=== PATIENT | male | born 1980 | race African-American/Black ===

== ENCOUNTER 2016-11-10 19:25 | Emergency (ER) | payer SELFPAY ==
[~2016-11-10] VITALS: Ht 167.6 cm; Wt 90.5 kg
[2016-11-10] MEDS ORDERED: SODIUM CHLORIDE 0.9% 1,000 ML IV ONE (19:45)
[2016-11-10 20:01] LABS: BASOPHILS # (AUTO) 0.07 K/uL (0.00-0.20); BASOPHILS % (AUTO) 1.2 % (0.0-2.0); EOSINOPHILS # (AUTO) 0.02 K/uL (0.00-0.70); EOSINOPHILS % (AUTO) 0.41 % (1.0-6.0); HEMOGLOBIN 13.5 g/dL (13.5-17.5); LYMPHOCYTES % (AUTO) 32.9 % (22.0-44.0); MEAN CORPUSCULAR HEMOGLOBIN 27.9 pg (26.0-34.0); MEAN CORPUSCULAR HGB CONC 32.9 G/dL (31.0-37.0); MEAN CORPUSCULAR VOLUME 85 fL (80-100); MONOCYTES # (AUTO) 0.8 K/uL (0.1-1.0); MONOCYTES % (AUTO) 12.7 % (2.0-9.0); NEUTROPHILS # (AUTO) 3.2 K/uL (1.8-7.7); NEUTROPHILS % (AUTO) 52.8 % (40.0-70.0); PLATELET COUNT (AUTO) 218 K/uL (150-450); RED BLOOD CELL COUNT(AUTO) 4.82 MIL/uL (4.50-5.90); RED CELL DISTRIBUTION WIDTH 15.9 % (11.5-14.5)
[2016-11-10 20:13] LABS: ANION GAP 9 mmol/L (8-16); CALCIUM, TOTAL 8.1 mg/dL (8.8-10.5); CARBON DIOXIDE 26 mmol/L (22-29); CHLORIDE 102 mmol/L (98-107); GLOMERULAR FILTR. RATE CALC > 60 mL/min (>60); POTASSIUM 3.3 mmol/L (3.5-5.1); SODIUM SERUM 137 mmol/L (136-145); UREA NITROGEN, BLOOD 11 mg/dL (7-18)
[2016-11-10 20:14] LABS: INR 0.9 (0.9-1.1); PROTHROMBIN TIME 9.9 SEC (9.4-11.6)
[2016-11-10 20:19] LABS: ALANINE AMINOTRANSFERASE 90 U/L (12-78); ALBUMIN 3.9 g/dL (3.4-5.0); ASPARTATE AMINOTRANSFERASE 125 U/L (15-37); BILIRUBIN,TOTAL 0.3 mg/dL (0.1-1.0)
[2016-11-10] MEDS ORDERED: ONDANSETRON HCL 4 MG/2 ML VIAL IVP ONE (21:00)
[2016-11-10] MEDS ORDERED: PANTOPRAZOLE SODIUM 40 MG/VIAL IVP ONE (21:00)
[2016-11-10] MEDS ORDERED: MAGNESIUM SULFATE 2 GM, MVI, ADULT NO.1 WITH VIT K 10 ML, THIAMINE HCL 100 MG, FOLIC AC... IV ONE ×5 (21:00)
[2016-11-10] MEDS ORDERED: POTASSIUM CHLORIDE 20 MEQ ER TABLET PO ONE (21:30)
[2016-11-10 22:34] LABS: APPEARANCE,URINE CLEAR (CLEAR); GLUCOSE, URINE (UA) NEGATIVE (NEGATIVE); KETONES,URINE NEGATIVE (NEGATIVE); LEUKOCYTE ESTERASE ,URINE NEGATIVE (NEGATIVE); OCCULT BLOOD,URINE NEGATIVE (NEGATIVE); PH,URINE 6.5 (5.0-8.0); PROTEIN,URINE NEGATIVE (NEGATIVE)
[2016-11-10 22:37] LABS: ADD UA MICROSCOPIC NO
[2016-11-10 23:18] VITALS: BP 122/70
== END 2016-11-10 23:21 | disposition home or self-care (01) ==
LOC: EMS 19:28
DX: R10.31 Right lower quadrant pain (principal); R11.2 Nausea with vomiting, unspecified; F10.129 Alcohol abuse with intoxication, unspecified; E87.6 Hypokalemia; Y90.8 Blood alcohol level of 240 mg/100 ml or more
CPT/HCPCS: 36415; 80053; 80307; 81003; 83690; 85025; 85610; 85730; 93005; 96361; 96365; 96366; 96375; 99285; C9113; G0480; J2405; J3411; J3475; J3490 ×2; J7030

== ENCOUNTER 2016-11-24 17:17 | Emergency (ER) | payer SELFPAY ==
[~2016-11-24] VITALS: Ht 167.6 cm; Wt 90.9 kg
[2016-11-24] MEDS ORDERED: SODIUM CHLORIDE 0.9% 1,000 ML IV ONE (19:30)
[2016-11-24] MEDS ORDERED: PANTOPRAZOLE SODIUM 40 MG/VIAL IVP ONE (19:30)
[2016-11-24 19:39] LABS: BASOPHILS % (AUTO) 0.3 % (0.0-2.0); EOSINOPHILS % (AUTO) 0.6 % (1.0-6.0); HEMATOCRIT 39.5 % (41-53); HEMOGLOBIN 13.3 g/dL (13.5-17.5); LYMPHOCYTES % (AUTO) 34.2 % (22.0-44.0); MEAN CORPUSCULAR HEMOGLOBIN 28.3 pg (26.0-34.0); MEAN CORPUSCULAR HGB CONC 33.7 G/dL (31.0-37.0); MEAN CORPUSCULAR VOLUME 84 fL (80-100); MONOCYTES # (AUTO) 0.7 K/uL (0.1-1.0); MONOCYTES % (AUTO) 13.1 % (2.0-9.0); NEUTROPHILS % (AUTO) 51.8 % (40.0-70.0); PLATELET COUNT (AUTO) 223 K/uL (150-450); RED BLOOD CELL COUNT(AUTO) 4.71 MIL/uL (4.50-5.90); RED CELL DISTRIBUTION WIDTH 15.9 % (11.5-14.5); WHITE BLOOD COUNT (AUTO) 5.7 K/uL (4.5-11.0)
[2016-11-24 19:48] LABS: ANION GAP 13 mmol/L (8-16); CALCIUM, TOTAL 8.6 mg/dL (8.8-10.5); CARBON DIOXIDE 27 mmol/L (22-29); CHLORIDE 104 mmol/L (98-107); CREATININE 0.93 mg/dL (0.60-1.30); GLOMERULAR FILTR. RATE CALC > 60 mL/min (>60); POTASSIUM 3.6 mmol/L (3.5-5.1); SODIUM SERUM 144 mmol/L (136-145); UREA NITROGEN, BLOOD 11 mg/dL (7-18)
[2016-11-24 19:54] LABS: ALANINE AMINOTRANSFERASE 145 U/L (12-78); ALBUMIN 3.8 g/dL (3.4-5.0); ASPARTATE AMINOTRANSFERASE 109 U/L (15-37); BILIRUBIN,TOTAL 0.2 mg/dL (0.1-1.0); INR 0.9 (0.9-1.1); TOTAL PROTEIN, SERUM 7.7 g/dL (6.4-8.2)
[2016-11-24 20:51] VITALS: BP 132/88
== END 2016-11-24 20:54 | disposition home or self-care (01) ==
LOC: EMS 17:20
DX: K92.2 Gastrointestinal hemorrhage, unspecified (principal); F10.129 Alcohol abuse with intoxication, unspecified; R42 Dizziness and giddiness; Y90.6 Blood alcohol level of 120-199 mg/100 ml
CPT/HCPCS: 36415; 80053; 85025; 85610; 85730; 96361; 96374; 99284; C9113; G0480; J7030

== ENCOUNTER 2018-11-23 11:00 | Emergency (ER) | payer SELFPAY ==
[~2018-11-23] VITALS: Ht 167.6 cm; Wt 86.4 kg
[2018-11-23] MEDS ORDERED: SODIUM CHLORIDE 0.9% 1,000 ML IV ONE (11:45)
[2018-11-23] MEDS ORDERED: LOPERAMIDE HCL 2 MG CAPSULE PO ONE (11:45)
[2018-11-23] MEDS ORDERED: ONDANSETRON HCL 4 MG/2 ML VIAL IVP ONE (11:45)
[2018-11-23 12:17] LABS: BASOPHILS % (AUTO) 0.4 % (0.0-2.0); EOSINOPHILS % (AUTO) 0.5 % (1.0-6.0); HEMOGLOBIN 15.2 g/dL (13.5-17.5); LYMPHOCYTES # (AUTO) 0.9 K/uL (1.0-4.8); LYMPHOCYTES % (AUTO) 25.5 % (22.0-44.0); MEAN CORPUSCULAR HEMOGLOBIN 28.7 pg (26.0-34.0); MEAN CORPUSCULAR HGB CONC 32.3 G/dL (31.0-37.0); MEAN CORPUSCULAR VOLUME 89 fL (80-100); MONOCYTES # (AUTO) 0.6 K/uL (0.1-1.0); MONOCYTES % (AUTO) 15.9 % (2.0-9.0); NEUTROPHILS # (AUTO) 2.1 K/uL (1.8-7.7); NEUTROPHILS % (AUTO) 57.7 % (40.0-70.0); PLATELET COUNT (AUTO) 165 K/uL (150-450); RED BLOOD CELL COUNT(AUTO) 5.29 MIL/uL (4.50-5.90); RED CELL DISTRIBUTION WIDTH 12.8 % (11.5-14.5)
[2018-11-23 12:27] LABS: ANION GAP 9 mmol/L (8-16); CALCIUM, TOTAL 9.7 mg/dL (8.8-10.5); CARBON DIOXIDE 29 mmol/L (22-29); CHLORIDE 98 mmol/L (98-107); GLOMERULAR FILTR. RATE CALC > 60 mL/min (>60); GLUCOSE,RANDOM 90 mg/dL (70-110); POTASSIUM 3.5 mmol/L (3.5-5.1); SODIUM SERUM 136 mmol/L (136-145); UREA NITROGEN, BLOOD 13 mg/dL (7-18)
[2018-11-23 12:30] LABS: INR 0.9 (0.9-1.1); PROTHROMBIN TIME 9.8 SEC (9.4-11.6)
[2018-11-23 12:33] LABS: ALANINE AMINOTRANSFERASE 131 U/L (12-78); ALBUMIN 3.9 g/dL (3.4-5.0); ALKALINE PHOSPHATASE 105 U/L (46-116); ASPARTATE AMINOTRANSFERASE 94 U/L (15-37); BILIRUBIN,TOTAL 0.8 mg/dL (0.1-1.0); LIPASE 168 U/L (73-393); TOTAL PROTEIN, SERUM 8.5 g/dL (6.4-8.2)
[2018-11-23 13:38] VITALS: BP 135/66
== END 2018-11-23 14:05 | disposition home or self-care (01) ==
LOC: EMS 11:02
DX: R11.2 Nausea with vomiting, unspecified (principal); R19.7 Diarrhea, unspecified; R10.13 Epigastric pain
CPT/HCPCS: 36415; 80053; 83690; 84484; 85025; 85610; 93005; 96361; 96374; 99284; J2405; J7030

== ENCOUNTER 2021-10-21 14:38 | Emergency (ER) | payer MEDICAID ==
[~2021-10-21] VITALS: Ht 167.6 cm; Wt 90.9 kg
[2021-10-21 14:43] VITALS: BP 142/78
[2021-10-22] MEDS ORDERED: BUPIVACAINE HCL 0.5% 50 ML VIAL ONE (14:06)
== END 2021-10-21 18:21 | disposition left against medical advice (07) ==
LOC: EMS 14:38
DX: Z53.21 Procedure and treatment not carried out due to patient leaving prior to being seen by health care provider (principal)
CPT/HCPCS: J3490

== ENCOUNTER 2021-10-21 20:20 | Inpatient (IN) | payer MEDICAID ==
[~2021-10-21] VITALS: Ht 167.6 cm; Wt 90.9 kg
[2021-10-22] MEDS ORDERED: LIDOCAINE 1% 20 ML VIAL ID ONE (00:15)
[2021-10-22] MEDS ORDERED: HYDROCODONE/ACETAMINOPHEN 5-325 MG TABLET PO ONE (00:15)
[2021-10-22] MEDS ORDERED: CeFAZolin 2 GM/DEXTROSE 50 ML IV ONE (00:45)
[2021-10-22 01:57] LABS: BASOPHILS % (AUTO) 0.6 % (0.0-2.0); EOSINOPHILS % (AUTO) 0.2 % (1.0-6.0); HEMATOCRIT 43.1 % (41-53); HEMOGLOBIN 14.3 g/dL (13.5-17.5); LYMPHOCYTES % (AUTO) 37.5 % (22.0-44.0); MEAN CORPUSCULAR HEMOGLOBIN 28.6 pg (26.0-34.0); MEAN CORPUSCULAR HGB CONC 33.2 G/dL (31.0-37.0); MEAN CORPUSCULAR VOLUME 86 fL (80-100); MONOCYTES # (AUTO) 0.9 K/uL (0.1-1.0); MONOCYTES % (AUTO) 11.1 % (2.0-9.0); NEUTROPHILS % (AUTO) 50.6 % (40.0-70.0); PLATELET COUNT (AUTO) 292 K/uL (150-450); RED CELL DISTRIBUTION WIDTH 14.7 % (11.5-14.5)
[2021-10-22 02:08] LABS: ANION GAP 9 mmol/L (8-16); CARBON DIOXIDE 27 mmol/L (22-29); CHLORIDE 105 mmol/L (98-107); CREATININE 1.03 mg/dL (0.60-1.30); GLOMERULAR FILTR. RATE CALC > 60 mL/min (>60); GLUCOSE,RANDOM 103 mg/dL (70-110); POTASSIUM 3.6 mmol/L (3.5-5.1); SODIUM SERUM 141 mmol/L (136-145); UREA NITROGEN, BLOOD 11 mg/dL (7-18)
[2021-10-22 02:13] LABS: INR 0.9 (0.9-1.1); PROTHROMBIN TIME 9.8 SEC (9.4-11.6)
[2021-10-22] MEDS ORDERED: PERTUSS(ACELL),DIPH,TET VAC/PF 0.5 ML SYRINGE IM. ONE (02:15)
[2021-10-22 02:30] LABS: COVID AG,FIA SOURCE NASAL SWAB
[2021-10-22] MEDS ORDERED: ALBUTEROL SULFATE 2.5 MG/0.5 ML NEB SOLUTION NEB PRN (04:30)
[2021-10-22] MEDS ORDERED: IPRATROPIUM BROMIDE 0.5 MG/2.5 ML NEB SOLUTION NEB PRN (04:30)
[2021-10-22] MEDS ORDERED: MORPHINE SULFATE 2 MG/ML SYRINGE IVP PRN (04:30)
[2021-10-22] MEDS ORDERED: ACETAMINOPHEN 325 MG TABLET PO PRN (04:30)
[2021-10-22] MEDS ORDERED: ONDANSETRON HCL 4 MG/2 ML VIAL IVP PRN (04:30)
[2021-10-22] MEDS: HEPARIN SODIUM,PORCINE 5,000 UNITS/ML VIAL SQ SCH ×3 (07:16→23:52)
[2021-10-22] MEDS ORDERED: LORazepam 2 MG TABLET PO PRN (07:45)
[2021-10-22] MEDS ORDERED: VANCOMYCIN HCL 1.5 GM in DEXTROSE 5%-WATER 250 ML IV ONE (08:00)
[2021-10-22 08:53] VITALS: BP 143/77
[2021-10-22 09:15] LABS: ALKALINE PHOSPHATASE 75 U/L (46-116)
[2021-10-22] MEDS ORDERED: SODIUM CHLORIDE 0.9% 500 ML IV ONE (09:27)
[2021-10-22] MEDS: CefTRIAXone 1 GM/DEXTROSE 50 ML IV SCH (11:00)
[2021-10-22] MEDS ORDERED: RINGERS SOLUTION,LACTATED 1,000 ML IV ONE ×2 (11:12→11:15)
[2021-10-22] MEDS ORDERED: BUPIVACAINE LIPOSOME/PF 1.3%-13.3MG/ML SUSPENSION 20 ML VIAL INJ ONE (11:30)
[2021-10-22] MEDS ORDERED: BUPIVACAINE HCL/PF 0.5% 30 ML VIAL ONE (11:30)
[2021-10-22] MEDS ORDERED: VANCOMYCIN HCL 1 GM/VIAL ONE (11:30)
[2021-10-22] MEDS ORDERED: SODIUM CL IRRIG SOLN BAG 3,000 ML IRRIG ONE (11:30)
[2021-10-22] MEDS: RINGERS SOLUTION,LACTATED 1,000 ML IV SCH (11:32)
[2021-10-22] MEDS ORDERED: HYDROmorphone 2 MG/ML VIAL IVP PRN (13:00)
[2021-10-22] MEDS ORDERED: MEPERIDINE-PF 25 MG/ML VIAL IVP PRN (13:00)
[2021-10-22] MEDS ORDERED: FentaNYL CITRATE PF 100 MCG/2 ML VIAL IVP PRN (13:00)
[2021-10-22] MEDS ORDERED: MUPIROCIN CALCIUM 2% 22 GM OINTMENT ONE (13:28)
[2021-10-22] MEDS ORDERED: SODIUM CL IRRIG SOLN BAG 6,000 ML IRRIG ONE (13:37)
[2021-10-22 15:54] VITALS: BP 152/93
[2021-10-22] MEDS: MAGNESIUM SULFATE 2 GM, MVI, ADULT NO.1 WITH VIT K 10 ML, THIAMINE 100 MG, FOLIC ACID 1... IV SCH ×5 (16:00)
[2021-10-22] MEDS: VANCOMYCIN 1GM/WATER(PEG/NADA) 200 ML IV SCH ×2 (17:04→23:52)
[2021-10-22 19:42] VITALS: BP 154/87
[2021-10-22] MEDS: CeFAZolin 1 GM/DEXTROSE 50 ML IV SCH (19:49)
[2021-10-22] MEDS: OxyCODONE HCL/ACETAMINOPHEN 5-325 MG TABLET PO PRN (19:49)
[2021-10-22] MEDS: OXYGEN THERAPY IH SCH (19:53)
[2021-10-23] MEDS: CeFAZolin 1 GM/DEXTROSE 50 ML IV SCH (03:25)
[2021-10-23] MEDS: OxyCODONE HCL/ACETAMINOPHEN 5-325 MG TABLET PO PRN ×2 (03:25→10:15)
[2021-10-23 03:32] VITALS: BP 140/88
[2021-10-23] MEDS: MAGNESIUM SULFATE 2 GM, MVI, ADULT NO.1 WITH VIT K 10 ML, THIAMINE 100 MG, FOLIC ACID 1... IV SCH ×5 (04:04)
[2021-10-23] MEDS ORDERED: ROCURONIUM BROMIDE 10 MG/ML 5 ML VIAL IVP ONE (06:29)
[2021-10-23] MEDS ORDERED: LIDOCAINE/PF 2% 5 ML VIAL IM ONE (06:29)
[2021-10-23] MEDS ORDERED: MIDAZOLAM HCL 2 MG/2 ML VIAL IVP ONE (06:29)
[2021-10-23] MEDS ORDERED: PROPOFOL 1% 20 ML VIAL IVP ONE (06:29)
[2021-10-23] MEDS ORDERED: 0.9% SODIUM CHLORIDE 10 ML VIAL IVP ONE (06:29)
[2021-10-23] MEDS ORDERED: FentaNYL CITRATE PF 100 MCG/2 ML VIAL IVP ONE (06:29)
[2021-10-23] MEDS ORDERED: HYDROmorphone 2 MG/ML VIAL IVP ONE (06:29)
[2021-10-23] MEDS ORDERED: ONDANSETRON HCL 4 MG/2 ML VIAL IVP ONE (06:29)
[2021-10-23] MEDS ORDERED: DEXAMETHASONE SOD PHOS 4 MG/ML VIAL IVP ONE (06:29)
[2021-10-23] MEDS ORDERED: PHENYLEPHRINE HCL 10 MG/ML VIAL IVP ONE (06:29)
[2021-10-23] MEDS ORDERED: LORazepam 2 MG TABLET PO PRN (07:00)
[2021-10-23 08:00] VITALS: BP 150/76
[2021-10-23] MEDS: OXYGEN THERAPY IH SCH ×2 (08:00→20:00)
[2021-10-23] MEDS: VANCOMYCIN 1GM/WATER(PEG/NADA) 200 ML IV SCH ×3 (08:10→23:37)
[2021-10-23] MEDS: LORazepam 2 MG TABLET PO SCH ×4 (08:10→20:26)
[2021-10-23] MEDS: HEPARIN SODIUM,PORCINE 5,000 UNITS/ML VIAL SQ SCH ×3 (08:10→23:37)
[2021-10-23 08:15] LABS: ANION GAP 10 mmol/L (8-16); CALCIUM, TOTAL 8.7 mg/dL (8.8-10.5); CARBON DIOXIDE 27 mmol/L (22-29); CHLORIDE 99 mmol/L (98-107); CREATININE 0.82 mg/dL (0.60-1.30); GLOMERULAR FILTR. RATE CALC > 60 mL/min (>60); GLUCOSE,RANDOM 111 mg/dL (70-110); POTASSIUM 4.4 mmol/L (3.5-5.1); SODIUM SERUM 136 mmol/L (136-145); UREA NITROGEN, BLOOD 10 mg/dL (7-18)
[2021-10-23] MEDS: RINGERS SOLUTION,LACTATED 1,000 ML IV SCH ×2 (11:15→11:35)
[2021-10-23] MEDS: CefTRIAXone 1 GM/DEXTROSE 50 ML IV SCH (11:33)
[2021-10-23 16:03] VITALS: BP 135/62
[2021-10-23 19:35] VITALS: BP 130/67
[2021-10-24] MEDS: MAGNESIUM SULFATE 2 GM, MVI, ADULT NO.1 WITH VIT K 10 ML, THIAMINE 100 MG, FOLIC ACID 1... IV SCH ×5 (02:08)
[2021-10-24 04:10] VITALS: BP 121/79
[2021-10-24] MEDS: OxyCODONE HCL/ACETAMINOPHEN 5-325 MG TABLET PO PRN ×2 (05:13→20:39)
[2021-10-24 06:45] LABS: ANION GAP 5 mmol/L (8-16); CALCIUM, TOTAL 8.6 mg/dL (8.8-10.5); CARBON DIOXIDE 30 mmol/L (22-29); CHLORIDE 102 mmol/L (98-107); CREATININE 0.83 mg/dL (0.60-1.30); GLOMERULAR FILTR. RATE CALC > 60 mL/min (>60); GLUCOSE,RANDOM 93 mg/dL (70-110); POTASSIUM 4.1 mmol/L (3.5-5.1); SODIUM SERUM 137 mmol/L (136-145); UREA NITROGEN, BLOOD 8 mg/dL (7-18); VANCOMYCIN,RANDOM 16.8 mcg/mL (25.0-50.0)
[2021-10-24 07:06] VITALS: BP 116/87
[2021-10-24] MEDS: OXYGEN THERAPY IH SCH ×2 (08:00→19:26)
[2021-10-24] MEDS: LORazepam 2 MG TABLET PO SCH ×2 (09:32→13:00)
[2021-10-24] MEDS: HEPARIN SODIUM,PORCINE 5,000 UNITS/ML VIAL SQ SCH ×3 (09:32→23:31)
[2021-10-24] MEDS: VANCOMYCIN 1GM/WATER(PEG/NADA) 200 ML IV SCH (09:33)
[2021-10-24] MEDS: RINGERS SOLUTION,LACTATED 1,000 ML IV SCH (11:15)
[2021-10-24] MEDS: CefTRIAXone 1 GM/DEXTROSE 50 ML IV SCH (11:55)
[2021-10-24] MEDS ORDERED: DOXY50 PO (13:11)
[2021-10-24 15:49] VITALS: BP 143/86
[2021-10-24 19:50] VITALS: BP 118/69
[2021-10-24] MEDS: DOXYCYCLINE HYCLATE 100 MG TABLET PO SCH (20:39)
[2021-10-25 04:49] VITALS: BP 127/80
[2021-10-25 06:33] LABS: ANION GAP 9 mmol/L (8-16); CALCIUM, TOTAL 8.5 mg/dL (8.8-10.5); CARBON DIOXIDE 27 mmol/L (22-29); CHLORIDE 101 mmol/L (98-107); CREATININE 0.79 mg/dL (0.60-1.30); GLOMERULAR FILTR. RATE CALC > 60 mL/min (>60); GLUCOSE,RANDOM 85 mg/dL (70-110); POTASSIUM 3.7 mmol/L (3.5-5.1); SODIUM SERUM 137 mmol/L (136-145); UREA NITROGEN, BLOOD 9 mg/dL (7-18)
[2021-10-25] MEDS ORDERED: LORazepam 1 MG TABLET PO PRN (07:00)
[2021-10-25] MEDS: OXYGEN THERAPY IH SCH ×2 (08:00→19:42)
[2021-10-25] MEDS: DOXYCYCLINE HYCLATE 100 MG TABLET PO SCH ×2 (08:03→20:01)
[2021-10-25] MEDS: OxyCODONE HCL/ACETAMINOPHEN 5-325 MG TABLET PO PRN ×2 (08:03→18:13)
[2021-10-25] MEDS: HEPARIN SODIUM,PORCINE 5,000 UNITS/ML VIAL SQ SCH ×3 (08:03→23:40)
[2021-10-25 08:12] VITALS: BP 122/83
[2021-10-25] MEDS ORDERED: LORazepam 1 MG TABLET PO SCH (09:00)
[2021-10-25 15:50] VITALS: BP 121/74
[2021-10-25 19:21] VITALS: BP 138/85
[2021-10-25 22:53] VITALS: BP 127/86
[2021-10-26 06:19] VITALS: BP 127/86
[2021-10-26] MEDS: OxyCODONE HCL/ACETAMINOPHEN 5-325 MG TABLET PO PRN ×3 (06:24→20:14)
[2021-10-26] MEDS ORDERED: LORazepam 1 MG TABLET PO PRN (07:00)
[2021-10-26 07:27] VITALS: BP 114/67
[2021-10-26 07:33] LABS: ANION GAP 6 mmol/L (8-16); CALCIUM, TOTAL 8.7 mg/dL (8.8-10.5); CARBON DIOXIDE 28 mmol/L (22-29); CHLORIDE 99 mmol/L (98-107); CREATININE 0.87 mg/dL (0.60-1.30); GLOMERULAR FILTR. RATE CALC > 60 mL/min (>60); GLUCOSE,RANDOM 87 mg/dL (70-110); POTASSIUM 3.5 mmol/L (3.5-5.1); SODIUM SERUM 133 mmol/L (136-145); UREA NITROGEN, BLOOD 11 mg/dL (7-18); VANCOMYCIN,RANDOM 0.9 mcg/mL (25.0-50.0)
[2021-10-26] MEDS: OXYGEN THERAPY IH SCH ×2 (08:52→19:14)
[2021-10-26] MEDS: HEPARIN SODIUM,PORCINE 5,000 UNITS/ML VIAL SQ SCH ×3 (08:52→23:08)
[2021-10-26] MEDS: DOXYCYCLINE HYCLATE 100 MG TABLET PO SCH ×2 (08:52→20:14)
[2021-10-26 15:56] VITALS: BP 126/77
[2021-10-26 20:03] VITALS: BP 127/76
[2021-10-27 04:26] VITALS: BP 119/80
[2021-10-27 06:37] LABS: ANION GAP 7 mmol/L (8-16); CARBON DIOXIDE 28 mmol/L (22-29); CHLORIDE 100 mmol/L (98-107); CREATININE 0.87 mg/dL (0.60-1.30); GLOMERULAR FILTR. RATE CALC > 60 mL/min (>60); GLUCOSE,RANDOM 84 mg/dL (70-110); POTASSIUM 4.1 mmol/L (3.5-5.1); SODIUM SERUM 135 mmol/L (136-145); UREA NITROGEN, BLOOD 12 mg/dL (7-18)
[2021-10-27 07:34] VITALS: BP 132/80
[2021-10-27] MEDS: HEPARIN SODIUM,PORCINE 5,000 UNITS/ML VIAL SQ SCH ×3 (08:26→23:29)
[2021-10-27] MEDS: OXYGEN THERAPY IH SCH ×2 (08:27→20:47)
[2021-10-27] MEDS: DOXYCYCLINE HYCLATE 100 MG TABLET PO SCH ×2 (08:27→20:44)
[2021-10-27] MEDS: OxyCODONE HCL/ACETAMINOPHEN 5-325 MG TABLET PO PRN ×2 (12:01→17:40)
[2021-10-27 15:38] VITALS: BP 127/76
[2021-10-27 20:38] VITALS: BP 123/85
[2021-10-28 04:55] VITALS: BP 124/70
[2021-10-28 07:04] VITALS: BP 126/74
[2021-10-28] MEDS: OXYGEN THERAPY IH SCH ×2 (08:00→20:23)
[2021-10-28] MEDS: DOXYCYCLINE HYCLATE 100 MG TABLET PO SCH ×2 (09:58→20:22)
[2021-10-28] MEDS: HEPARIN SODIUM,PORCINE 5,000 UNITS/ML VIAL SQ SCH ×3 (09:59→23:03)
[2021-10-28 15:08] VITALS: BP 122/72
[2021-10-28] MEDS: OxyCODONE HCL/ACETAMINOPHEN 5-325 MG TABLET PO PRN (17:31)
[2021-10-28 19:28] VITALS: BP 122/77
[2021-10-29 04:15] VITALS: BP 110/78
[2021-10-29] MEDS: DOXYCYCLINE HYCLATE 100 MG TABLET PO SCH ×2 (07:41→20:03)
[2021-10-29] MEDS: HEPARIN SODIUM,PORCINE 5,000 UNITS/ML VIAL SQ SCH ×3 (07:41→23:41)
[2021-10-29] MEDS: OXYGEN THERAPY IH SCH ×2 (07:41→19:40)
[2021-10-29] MEDS ORDERED: VITAMINS A & D 113 GM OINTMENT TP PRN (08:00)
[2021-10-29 08:04] VITALS: BP 144/90
[2021-10-29] MEDS: OxyCODONE HCL/ACETAMINOPHEN 5-325 MG TABLET PO PRN (12:48)
[2021-10-29 15:36] VITALS: BP 133/74
[2021-10-29 19:49] VITALS: BP 122/60
[2021-10-30 04:00] VITALS: BP 128/73
[2021-10-30 07:58] VITALS: BP 124/75
[2021-10-30] MEDS: OXYGEN THERAPY IH SCH ×2 (08:00→20:00)
[2021-10-30] MEDS: OxyCODONE HCL/ACETAMINOPHEN 5-325 MG TABLET PO PRN ×2 (08:18→18:36)
[2021-10-30] MEDS: DOXYCYCLINE HYCLATE 100 MG TABLET PO SCH ×2 (08:19→20:06)
[2021-10-30] MEDS: HEPARIN SODIUM,PORCINE 5,000 UNITS/ML VIAL SQ SCH ×3 (08:19→23:17)
[2021-10-30] MEDS ORDERED: SODIUM CHLORIDE 0.9% IRRIG BTL 1,000 ML IRRIG ONE (11:17)
[2021-10-30 16:02] VITALS: BP 121/70
[2021-10-30 19:34] VITALS: BP 135/83
[2021-10-31 04:00] VITALS: BP 120/62
[2021-10-31 07:28] VITALS: BP 121/64
[2021-10-31] MEDS: OXYGEN THERAPY IH SCH ×2 (08:00→20:00)
[2021-10-31] MEDS: DOXYCYCLINE HYCLATE 100 MG TABLET PO SCH ×2 (08:21→20:44)
[2021-10-31] MEDS: HEPARIN SODIUM,PORCINE 5,000 UNITS/ML VIAL SQ SCH ×3 (08:22→23:36)
[2021-10-31] MEDS: OxyCODONE HCL/ACETAMINOPHEN 5-325 MG TABLET PO PRN ×2 (08:23→20:45)
[2021-10-31 15:10] VITALS: BP 124/76
[2021-10-31 19:47] VITALS: BP 123/78
[2021-11-01 05:12] VITALS: BP 116/67
[2021-11-01 07:39] VITALS: BP 124/71
[2021-11-01] MEDS: OXYGEN THERAPY IH SCH (08:00)
[2021-11-01] MEDS: HEPARIN SODIUM,PORCINE 5,000 UNITS/ML VIAL SQ SCH ×3 (08:31→23:24)
[2021-11-01] MEDS: DOXYCYCLINE HYCLATE 100 MG TABLET PO SCH ×2 (08:31→20:23)
[2021-11-01] MEDS: OxyCODONE HCL/ACETAMINOPHEN 5-325 MG TABLET PO PRN ×2 (08:32→20:23)
[2021-11-01 15:27] VITALS: BP 114/73
[2021-11-01] MEDS ORDERED: ERYTHROMYCIN 0.5% 3.5 GM TUBE OPHTHALMIC OINTMENT OU SCH (16:00)
[2021-11-01 19:54] VITALS: BP 118/74
[2021-11-02 04:13] VITALS: BP 112/68
[2021-11-02 07:50] VITALS: BP 111/64
[2021-11-02] MEDS: DOXYCYCLINE HYCLATE 100 MG TABLET PO SCH ×2 (07:50→19:53)
[2021-11-02] MEDS: HEPARIN SODIUM,PORCINE 5,000 UNITS/ML VIAL SQ SCH ×3 (07:50→23:58)
[2021-11-02] MEDS: OxyCODONE HCL/ACETAMINOPHEN 5-325 MG TABLET PO PRN ×4 (09:09→19:58)
[2021-11-02 15:10] VITALS: BP 120/72
[2021-11-02 19:16] VITALS: BP 122/72
[2021-11-03 05:36] VITALS: BP 108/69
[2021-11-03 07:53] VITALS: BP 127/94
[2021-11-03] MEDS: HEPARIN SODIUM,PORCINE 5,000 UNITS/ML VIAL SQ SCH ×2 (08:05→16:24)
[2021-11-03] MEDS: DOXYCYCLINE HYCLATE 100 MG TABLET PO SCH ×2 (08:05→19:53)
[2021-11-03] MEDS: OxyCODONE HCL/ACETAMINOPHEN 5-325 MG TABLET PO PRN ×2 (10:24→19:57)
[2021-11-03 15:10] VITALS: BP 128/81
[2021-11-03 19:58] VITALS: BP 122/62
[2021-11-04 04:00] VITALS: BP 121/65
[2021-11-04 07:51] VITALS: BP 127/66
[2021-11-04] MEDS: DOXYCYCLINE HYCLATE 100 MG TABLET PO SCH ×2 (08:22→21:12)
[2021-11-04] MEDS: HEPARIN SODIUM,PORCINE 5,000 UNITS/ML VIAL SQ SCH ×4 (08:22→23:26)
[2021-11-04] MEDS: OxyCODONE HCL/ACETAMINOPHEN 5-325 MG TABLET PO PRN ×2 (08:30→16:16)
[2021-11-04 15:26] VITALS: BP 118/73
[2021-11-04 20:17] VITALS: BP 121/62
[2021-11-05 04:42] VITALS: BP 109/67
[2021-11-05 08:18] VITALS: BP 103/71
[2021-11-05] MEDS: HEPARIN SODIUM,PORCINE 5,000 UNITS/ML VIAL SQ SCH ×3 (09:30→23:49)
[2021-11-05] MEDS: OxyCODONE HCL/ACETAMINOPHEN 5-325 MG TABLET PO PRN ×2 (09:45→16:53)
[2021-11-05] MEDS: DOXYCYCLINE HYCLATE 100 MG TABLET PO SCH ×2 (10:56→20:46)
[2021-11-05 17:02] VITALS: BP 106/43
[2021-11-06 05:55] VITALS: BP 118/74
[2021-11-06 07:55] VITALS: BP 130/79
[2021-11-06] MEDS: DOXYCYCLINE HYCLATE 100 MG TABLET PO SCH ×2 (08:59→21:02)
[2021-11-06] MEDS: HEPARIN SODIUM,PORCINE 5,000 UNITS/ML VIAL SQ SCH ×3 (08:59→23:31)
[2021-11-06] MEDS: OxyCODONE HCL/ACETAMINOPHEN 5-325 MG TABLET PO PRN ×2 (11:16→18:43)
[2021-11-06 16:29] VITALS: BP 123/76
[2021-11-06 19:58] VITALS: BP 120/64
[2021-11-07 02:31] VITALS: BP 116/79
[2021-11-07 07:52] VITALS: BP 118/73
[2021-11-07] MEDS: DOXYCYCLINE HYCLATE 100 MG TABLET PO SCH ×2 (08:25→20:42)
[2021-11-07] MEDS: HEPARIN SODIUM,PORCINE 5,000 UNITS/ML VIAL SQ SCH ×3 (08:25→23:56)
[2021-11-07] MEDS: OxyCODONE HCL/ACETAMINOPHEN 5-325 MG TABLET PO PRN ×2 (08:27→20:42)
[2021-11-07 16:00] VITALS: BP 101/73
[2021-11-07 19:50] VITALS: BP 123/75
[2021-11-08 04:20] VITALS: BP 108/80
[2021-11-08 07:18] VITALS: BP 108/67
[2021-11-08] MEDS: DOXYCYCLINE HYCLATE 100 MG TABLET PO SCH ×2 (08:34→21:17)
[2021-11-08] MEDS: HEPARIN SODIUM,PORCINE 5,000 UNITS/ML VIAL SQ SCH ×3 (08:36→23:25)
[2021-11-08] MEDS: OxyCODONE HCL/ACETAMINOPHEN 5-325 MG TABLET PO PRN ×2 (11:02→21:18)
[2021-11-08 15:31] VITALS: BP 108/64
[2021-11-08 19:33] VITALS: BP 103/65
[2021-11-09 04:26] VITALS: BP 113/85
[2021-11-09] MEDS: HEPARIN SODIUM,PORCINE 5,000 UNITS/ML VIAL SQ SCH ×3 (09:04→23:08)
[2021-11-09] MEDS: OxyCODONE HCL/ACETAMINOPHEN 5-325 MG TABLET PO PRN ×2 (09:05→18:50)
[2021-11-09] MEDS: DOXYCYCLINE HYCLATE 100 MG TABLET PO SCH ×2 (09:05→20:41)
[2021-11-09 11:24] VITALS: BP 128/70
[2021-11-09 15:35] VITALS: BP 120/78
[2021-11-09 20:00] VITALS: BP 130/78
[2021-11-10 04:00] VITALS: BP 117/66
[2021-11-10 07:46] VITALS: BP 109/58
[2021-11-10] MEDS: DOXYCYCLINE HYCLATE 100 MG TABLET PO SCH ×2 (10:10→21:07)
[2021-11-10] MEDS: HEPARIN SODIUM,PORCINE 5,000 UNITS/ML VIAL SQ SCH ×3 (10:10→23:10)
[2021-11-10] MEDS: OxyCODONE HCL/ACETAMINOPHEN 5-325 MG TABLET PO PRN ×2 (10:10→18:18)
[2021-11-10 15:37] VITALS: BP 122/77
[2021-11-10 20:10] VITALS: BP 129/86
[2021-11-11 04:00] VITALS: BP 109/69
[2021-11-11] MEDS: OxyCODONE HCL/ACETAMINOPHEN 5-325 MG TABLET PO PRN ×2 (06:30→13:01)
[2021-11-11 07:28] VITALS: BP 127/88
[2021-11-11] MEDS: DOXYCYCLINE HYCLATE 100 MG TABLET PO SCH (09:28)
[2021-11-11] MEDS: HEPARIN SODIUM,PORCINE 5,000 UNITS/ML VIAL SQ SCH (09:29)
== END 2021-11-11 15:00 | disposition home or self-care (01) | DRG 313 ==
LOC: EMS 20:40 → 6S 10-22 06:37
PROVIDERS: ADMIT Internal Medicine; ATTEND Internal Medicine
PROC: 3E0234Z Introduction of Serum, Toxoid and Vaccine into Muscle, Percutaneous Approach (ICD-10-PCS; 2021-10-22)
PROC: 0QSG04Z Reposition Right Tibia with Internal Fixation Device, Open Approach (ICD-10-PCS; principal; 2021-10-22 12:15)
DX: S82.51XA Displaced fracture of medial malleolus of right tibia, initial encounter for closed fracture (principal); R65.10 Systemic inflammatory response syndrome (SIRS) of non-infectious origin without acute organ dysfunction; F10.20 Alcohol dependence, uncomplicated; M79.7 Fibromyalgia; Z20.822 Contact with and (suspected) exposure to COVID-19; S92.421B Displaced fracture of distal phalanx of right great toe, initial encounter for open fracture; Y90.9 Presence of alcohol in blood, level not specified; X58.XXXA Exposure to other specified factors, initial encounter; Z23 Encounter for immunization; Y93.89 Activity, other specified; Y92.89 Other specified places as the place of occurrence of the external cause; Y99.9 Unspecified external cause status
CPT/HCPCS: 29515; 80048; 80202; 84075; 85025; 85610; 90715; 97110; 97116; 97161; 97165; 97530; 97535; 99285; C9290; J0690; J0696; J1100; J1170; J1644; J2250; J2270; J2370; J2405; J2704; J3010; J3370; J3411; J3475; J3490; J7030; J7040; J7060; J7120; Q9967

== ENCOUNTER 2021-11-19 15:32 | Emergency (ER) | payer MEDICAID ==
[~2021-11-19] VITALS: Ht 170.2 cm; Wt 83.2 kg
[2021-11-19] MEDS ORDERED: KETOROLAC TROMETHAMINE 60 MG/2 ML VIAL IM ONE (16:30)
[2021-11-19] MEDS ORDERED: NAPR-1025 PO (17:48)
[2021-11-19 18:19] VITALS: BP 145/93
== END 2021-11-19 18:31 | disposition home or self-care (01) ==
LOC: EMS 15:34
DX: M25.571 Pain in right ankle and joints of right foot (principal); F10.20 Alcohol dependence, uncomplicated; M79.7 Fibromyalgia
CPT/HCPCS: 99283; 73610; 96372; J1885